=== PATIENT | female | born 1940 | race Caucasian/White ===

== ENCOUNTER 2017-06-09 23:27 | Inpatient (IN) | payer MEDICARE ==
[~2017-06-09] VITALS: Ht 154.9 cm; Wt 61.0 kg
[~2017-06-09 23:27] MED LIST: ONDA4TAB10 SL
--- NOTE | 2017-06-09 23:29 | PHYS DOC ---
Past Medical History Past Medical History: Cancer, Hypertension Additional Past Medical Histor: breast cancer s/p treatment Past Surgical History: Cholecystectomy, Tonsillectomy Additional Past Surgical Histo: R breast mastectomy Alcohol Use: None Drug Use: None Adult General Chief Complaint Chief Complaint: DIZZY/LIGHT HEADED [facility] HPI Patient is a 76 year old female who presents with nausea, vomiting, dizziness. She states it started around 9:00 tonight. She took her blood pressure and it was 185/85 at that time. She states she vomited up her blood pressure meds. She denies any vertigo type symptoms. She denies any chest pain. She denies abdominal pain. She vomited upon arrival to the ER. Her blood pressures currently 209 systolic. Review of Systems Review of Systems Constitutional: Denies fever or chills [] Eyes: Denies change in visual acuity, redness, or eye pain [] HENT: Denies nasal congestion or sore throat [] Respiratory: Denies cough or shortness of breath [] Cardiovascular: No additional information not addressed in HPI [] GI: Denies abdominal pain, bloody stools or diarrhea, positive for nausea, vomiting : Denies dysuria or hematuria [] Musculoskeletal: Denies back pain or joint pain [] Integument: Denies rash or skin lesions [] Neurologic: Denies headache, focal weakness or sensory changes [] Endocrine: Denies polyuria or polydipsia [] All other systems were reviewed and found to be within normal limits, except as documented in this note. Current Medications Current Medications Allergies Allergies Allergies Coded Allergies Type Severity Reaction Last Updated Verified Sulfa (Sulfonamide Antibiotics) Allergy Intermediate 08/17/16 Yes atropine Allergy Intermediate 08/17/16 Yes codeine Allergy Intermediate 08/17/16 Yes diphenoxylate Allergy Intermediate 08/17/16 Yes Physical Exam Physical Exam Constitutional: Well developed, well nourished, no acute distress, non-toxic appearance. [] HENT: Normocephalic, atraumatic, bilateral external ears normal, oropharynx moist, no oral exudates, nose normal. Right TM occluded with wax, left TM nonerythematous Eyes: PERRLA, EOMI, conjunctiva normal, no discharge. [] Neck: Normal range of motion, no tenderness, supple, no stridor. [] Cardiovascular:Heart rate regular rhythm, no murmur [] Lungs & Thorax: Bilateral breath sounds clear to auscultation [] Abdomen: Bowel sounds normal, soft, no tenderness, no masses, no pulsatile masses. [] Skin: Warm, dry, no erythema, no rash. [] Back: No tenderness, no CVA tenderness. [] Extremities: No tenderness, no cyanosis, no clubbing, ROM intact, no edema. [] Neurologic: Alert and oriented X 3, normal motor function, normal sensory function, no focal deficits noted. [] Psychologic: Affect normal, judgement normal, mood normal. [] Current Patient Data Vital Signs Vital Signs Date Time Temp Pulse Resp B/P (MAP) Pulse Ox O2 Delivery O2 Flow Rate FiO2 06/10/17 00:16 58 12 94 06/09/17 23:40 96.9 191/80 (117) Room Air 96.9 Lab Values Laboratory Tests Test 06/09/17 23:40 06/09/17 23:50 Urine Collection Type Unknown Urine Color Yellow Urine Clarity Cloudy Urine pH 7.5 Urine Specific [place] 1.015 Urine Protein 30 mg/dL (NEG-TRACE) Urine Glucose (UA) 250 mg/dL (NEG) Urine Ketones (Stick) Negative mg/dL (NEG) Urine Blood Trace (NEG) Urine Nitrite Negative (NEG) Urine Bilirubin Negative (NEG) Urine Urobilinogen Dipstick 0.2 mg/dL (0.2 mg/dL) Urine Leukocyte Esterase Negative (NEG) Urine RBC 1-2 /HPF (0-2) Urine WBC 0 /HPF (0-4) Urine Squamous Epithelial Cells Few /LPF Urine Amorphous Sediment Present /HPF Urine Bacteria 0 /HPF (0-FEW) Urine Mucus Slight /LPF Urine Opiates Screen Neg (NEG) Urine Methadone Screen Neg (NEG) Urine Barbiturates Neg (NEG) Urine Phencyclidine Screen Neg (NEG) Urine Amphetamine/Methamphetamine Neg (NEG) Urine Benzodiazepines Screen Neg (NEG) Urine Cocaine Screen Neg (NEG) Urine Cannabinoids Screen Neg (NEG) Urine Ethyl Alcohol Neg (NEG) White Blood Count 8.2 x10^3/uL (4.0-11.0) Red Blood Count 4.70 x10^6/uL (3.50-5.40) Hemoglobin 14.8 g/dL (12.0-15.5) Hematocrit 43.3 % (36.0-47.0) Mean Corpuscular Volume 92 fL (79-100) Mean Corpuscular Hemoglobin 32 pg (25-35) Mean Corpuscular Hemoglobin Concent 34 g/dL (31-37) Red Cell Distribution Width 13.0 % (11.5-14.5) Platelet Count 184 x10^3/uL (140-400) Neutrophils (%) (Auto) 79 % (31-73) H Lymphocytes (%) (Auto) 15 % (24-48) L Monocytes (%) (Auto) 5 % (0-9) Eosinophils (%) (Auto) 0 % (0-3) Basophils (%) (Auto) 1 % (0-3) Neutrophils # (Auto) 6.5 x10^3uL (1.8-7.7) Lymphocytes # (Auto) 1.2 x10^3/uL (1.0-4.8) Monocytes # (Auto) 0.4 x10^3/uL (0.0-1.1) Eosinophils # (Auto) 0.0 x10^3/uL (0.0-0.7) Basophils # (Auto) 0.1 x10^3/uL (0.0-0.2) Prothrombin Time 12.9 SEC (11.7-14.0) Prothrombin Time INR 1.0 (0.8-1.1) Sodium Level 140 mmol/L (136-145) Potassium Level 3.7 mmol/L (3.5-5.1) Chloride Level 102 mmol/L (98-107) Carbon Dioxide Level 28 mmol/L (21-32) Anion Gap 10 (6-14) Blood Urea Nitrogen 15 mg/dL (7-20) Creatinine 0.7 mg/dL (0.6-1.0) Estimated GFR (Cockcroft-Gault) 81.4 Glucose Level 176 mg/dL (70-99) H Calcium Level 9.3 mg/dL (8.5-10.1) Magnesium Level 2.0 mg/dL (1.8-2.4) Total Bilirubin 0.4 mg/dL (0.2-1.0) Direct Bilirubin 0.1 mg/dL (0.0-0.2) Aspartate Amino Transferase (AST) 17 U/L (15-37) Alanine Aminotransferase (ALT) 25 U/L (14-59) Alkaline Phosphatase 102 U/L (46-116) Creatine Kinase 72 U/L (26-192) Creatine Kinase MB (Mass) 2.9 ng/mL (0.0-3.6) Creatine Kinase MB Relative Index 4.0 % (0-4) Troponin I Quantitative < 0.017 ng/mL (0.000-0.055) BN-Lbt-H-Type Natriuretic Peptide 161 pg/mL (0-449) Total Protein 7.3 g/dL (6.4-8.2) Albumin 4.6 g/dL (3.4-5.0) Lipase 213 U/L (73-393) Thyroid Stimulating Hormone (TSH) 1.348 uIU/mL (0.358-3.74) Laboratory Tests 06/09/17 23:50 Laboratory Tests 06/09/17 23:50 EKG EKG EKG shows sinus rhythm with rate of [address] elevations or concerning T-wave inversions, and normal axis, incomplete right bundle branch morphology noted, QRS 92, QTC 453 ms, as interpreted by me. Radiology/Procedures Radiology/Procedures One view chest x-ray did not show any focal consolidations, bony abnormality's, pneumothorax, as interpreted by me. Impressions: Accelerated hypertension Dizziness Nausea vomiting History of hypertension History of breast cancer status post mastectomy Course & Med Decision Making Course & Med Decision Making Pertinent Labs and Imaging studies reviewed. (See chart for details) Labs, EKG, chest x-ray nonacute. Patient received IV hydralazine 2 to bring her blood pressure down to the 140s now. She feels dizzy and states she feels like she spinning. She states she's had history of vertigo in the past but this is a little different with the room spun before. She complains about fullness in her right ear. She received a dose of Zofran for nausea and a dose of meclizine for dizziness. She's being admitted to Dr. Jang in stable condition this time. CT of head is pending at this time. She does not have any focal neurological deficits or headache. CT head return with a small area of density is concerning for subarachnoid. I spoke with Dr. Conte who once CT angiogram of the head and neck to look for any aneurysm. CT angiogram of head and neck did not show any acute process. The patient being admitted in stable condition this time. Dragon Disclaimer Dragon Disclaimer This electronic medical record was generated, in whole or in part, using a voice recognition dictation system. Departure Departure Impression: Primary Impression: Accelerated hypertension Additional Impression: Dizziness Disposition: 09 ADMITTED INPATIENT Admitting Physician: Luke Jang Condition: STABLE Referrals: LUKE JANG MD (PCP) Problem Qualifiers DAVID ESPINOSA MD Jun 09, 2017 23:29
[2017-06-10 00:02] LABS: BASO # 0.1 x10^3/uL (0.0-0.2); BASO % 1 % (0-3); EOS % 0 % (0-3); HEMATOCRIT 43.3 % (36.0-47.0); HEMOGLOBIN 14.8 g/dL (12.0-15.5); LYMPH # 1.2 x10^3/uL (1.0-4.8); LYMPH % 15 % (24-48); MEAN CORPUSCULAR HEMOGLOBIN 32 pg (25-35); MEAN CORPUSCULAR HGB CONC 34 g/dL (31-37); MEAN CORPUSCULAR VOLUME 92 fL (79-100); MONO % 5 % (0-9); NEUT % 79 % (31-73); PLATELET COUNT 184 x10^3/uL (140-400); WHITE BLOOD COUNT 8.2 x10^3/uL (4.0-11.0)
[2017-06-10 00:03] LABS: BILIRUBIN,URINE NEGATIVE (NEG); GLUCOSE,URINE 250 mg/dL (NEG); NITRITE,URINE NEGATIVE (NEG); PH,URINE 7.5; PROTEIN,URINE 30 mg/dL (NEG-TRACE); UROBILINOGEN,URINE 0.2 mg/dL (0.2 mg/dL)
[2017-06-10 00:09] LABS: BACTERIA,URINE 0 /HPF (0-FEW); SQUAMOUS EPITHELIAL CELL,UR FEW /LPF; WBC,URINE 0 /HPF (0-4)
[2017-06-10 00:10] LABS: PROTHROMBIN TIME PATIENT 12.9 SEC (11.7-14.0)
[2017-06-10 00:15] LABS: BARBITURATES NEG (NEG); BENZODIAZEPINES NEG (NEG); CANNABINOIDS NEG (NEG); COCAINE NEG (NEG); METHADONE NEG (NEG); OPIATES NEG (NEG); PHENCYCLIDINE NEG (NEG)
[2017-06-10 00:18] LABS: CALCIUM 9.3 mg/dL (8.5-10.1); CREATININE 0.7 mg/dL (0.6-1.0); GFR 81.4; POTASSIUM 3.7 mmol/L (3.5-5.1)
[2017-06-10 00:25] LABS: ALBUMIN 4.6 g/dL (3.4-5.0); DIRECT BILIRUBIN 0.1 mg/dL (0.0-0.2); TOTAL BILIRUBIN 0.4 mg/dL (0.2-1.0); TOTAL PROTEIN 7.3 g/dL (6.4-8.2)
[2017-06-10 00:33] LABS: CKMB MASS 2.9 ng/mL (0.0-3.6)
[2017-06-10] MEDS ORDERED: ONDANSETRON PF 4 MG/2 ML VIAL. ONE (00:39)
[2017-06-10] MEDS ORDERED: hydrALAZINE 20 MG/ML VIAL. ONE (00:39)
[2017-06-10] MEDS ORDERED: ONDANSETRON PF 4 MG/2 ML VIAL. IV ONE (01:00)
[2017-06-10] MEDS ORDERED: hydrALAZINE 20 MG/ML VIAL. IVP ONE ×2 (01:00→01:15)
[2017-06-10] MEDS ORDERED: ONDANSETRON PF 4 MG/2 ML VIAL. IV PRN (01:45)
[2017-06-10] MEDS ORDERED: MECLIZINE HCL 12.5 MG TABLET. PO ONE (02:00)
[2017-06-10] MEDS ORDERED: PROMETHAZINE 12.5 MG in IV DEXTROSE 5% 50 ML IV PRN (02:15)
--- NOTE | 2017-06-10 02:26 | RAD ---
INDICATION: dizziness COMPARISON: None. TECHNIQUE: Axial CT images obtained through the head without intravenous contrast. One or more of the following individualized dose reduction techniques were utilized for this examination: 1. Automated exposure control; 2. Adjustment of the mA and/or kV according to patient size; 3. Use of iterative reconstruction technique. FINDINGS: Tiny focus of high attenuation in left temporal region No midline shift. Basal cisterns patents. Ventricles and sulci are globally prominent. No acute osseous abnormality. Orbits and paranasal sinuses unremarkable. Scattered foci of low attenuation within the white matter. IMPRESSION: 1. Tiny focus of low high attenuation is seen within the left temporal region. Although its possible that this is secondary to calcific atherosclerosis in one of the branches of the left MCA or a calcification along the cortex alternative causes such as a small amount of subarachnoid hemorrhage can have this appearance. Other possible causes including a small thrombus is also within the differential. Follow-up MRI or CT in a few hours may be helpful to ensure no increase in this finding. 2. Scattered regions of low attenuation within the white matter. Non-specific in nature but frequently secondary to chronic small vessel ischemic disease. 3. Prominence of ventricles and sulci which is frequently secondary to age related volume loss. Electronically signed by: Markel Wellington MD (06/10/2017 2:23 AM) [id number]
[2017-06-10] MEDS ORDERED: CONTRAST GIVEN MC PRN (05:30)
[2017-06-10] MEDS ORDERED: IOHEXOL 300 MG/ML 100ML VIAL. IV ONE (06:00)
--- NOTE | 2017-06-10 06:55 | RAD ---
INDICATION: Dizziness with concern for vascular etiology. COMPARISON: CT head from earlier same day TECHNIQUE: Axial CT images obtained through the head and neck arterial vasculature with three-dimensional images processed per protocol. Estimates of carotid stenosis based on criteria that correlate with NASCET. One or more of the following individualized dose reduction techniques were utilized for this examination: 1. Automated exposure control; 2. Adjustment of the mA and/or kV according to patient size; 3. Use of iterative reconstruction technique. FINDINGS: Neck angiography: Vertebral arteries are patent. Common carotid arteries are patent. There is some calcific atherosclerosis seen at carotid bulbs. Internal carotid arteries are patent. Proximal external carotid arteries are patent. Suspected approximately 50 percent stenosis at right carotid bulb. Brain angiography: Basilar artery is patent. Distal internal carotid arteries patent. Proximal MCA, LISA and [employer] patent. No definite proximal aneurysm. Other findings: The region of high attenuation within the left cerebral hemisphere on the noncontrast exam is not as well seen on this exam postcontrast. A branch of the left MCA is seen coursing through this region with contrast seen within it. Degenerative changes spine.. IMPRESSION: No evidence of occlusion of the major arterial vessels of the neck. No evidence of occlusion of the proximal major vessels of the head but CT angiography is insensitive for evaluation of more peripheral small vessel stroke. If there is any clinical concern for stroke then MRI should be obtained to further evaluate. The region of high attenuation within the left temporal region seen on noncontrast imaging is not as well seen on this examination. This could be secondary to postcontrast nature of this exam and a follow-up examination with MRI or noncontrast CT at a later time should still BE obtained to ensure that there is not a small amount of hemorrhage in this area. It is possible that this high attenuation is artifactual in nature but follow-up is warranted. Electronically signed by: Markel Wellington MD (06/10/2017 6:52 AM) [facility]
--- NOTE | 2017-06-10 07:29 | EKG ---
[facility] [address] [place] [address] Test Date: 2017-06-09 Test Time: 23:47:44 Pat Name: NILES FERREIRA Department: Room: 203 1 Gender: F Commercial Announcer: : 1940 Requested By: DAVID ESPINOSA Order Number: [id number] Reading MD: Abiodun Berry Measurements Intervals [place] Rate: 62 P: -38 ND: 150 QRS: 5 QRSD: 92 T: 48 QT: 444 QTc: 453 Interpretive Statements SINUS RHYTHM INCOMPLETE RIGHT BUNDLE BRANCH BLOCK OTHERWISE NORMAL ECG RI6.01 No previous ECG available for comparison Electronically Signed On 06-10-2017 17:42:56 BAR CATCHER by Abiodun Berry
--- NOTE | 2017-06-10 07:45 | RAD ---
Chest x-ray Indication: Weakness Technique: Portable AP upright chest x-ray Comparison: None Findings: Heart is normal in size. Aortic knob calcifications noted. Lungs are clear without focal consolidation. No pneumothorax or pleural effusion. Right axillary lymph node dissection. Visualized bony thorax is within normal limits. Impression: No acute cardiopulmonary process.
--- NOTE | 2017-06-10 08:29 | PDOC ---
GENERAL General: see dictated H&P. Problems: VITAL SIGNS Vital Signs: Vital Signs Date Time Temp Pulse Resp B/P (MAP) Pulse Ox O2 Delivery O2 Flow Rate FiO2 06/10/17 06:56 65 18 95 06/10/17 01:04 209/84 06/09/17 23:40 96.9 Room Air 96.9 ALLERGIES Allergies: Allergies Coded Allergies Type Severity Reaction Last Updated Verified Sulfa (Sulfonamide Antibiotics) Allergy Intermediate 08/17/16 Yes atropine Allergy Intermediate 08/17/16 Yes codeine Allergy Intermediate 08/17/16 Yes diphenoxylate Allergy Intermediate 08/17/16 Yes MEDS Medications: Current Medications Medications (Trade) Dose Ordered Sig/Ilia Start Time Stop Time Status Last Admin Dose Admin Hydralazine HCl (Apresoline Inj) 10 mg 1X ONCE 06/10/17 01:15 06/10/17 01:16 DC 06/10/17 01:04 10 MG Info (Do NOT chart on this entry -- for MONITORING) 1 each PRN DAILY PRN 06/10/17 05:30 06/12/17 05:29 Iohexol (Omnipaque 300 Mg/ml) 75 ml 1X ONCE 06/10/17 06:00 06/10/17 06:01 DC Meclizine HCl (Antivert) 25 mg 1X ONCE 06/10/17 02:00 06/10/17 02:01 DC 06/10/17 01:48 25 MG Ondansetron HCl (Zofran) 4 mg PRN Q8HRS PRN 06/10/17 01:45 06/11/17 01:44 06/10/17 01:53 4 MG Promethazine HCl 12.5 mg/Dextrose 50.5 ml @ 151.5 mls/ hr PRN Q6HRS PRN 06/10/17 02:15 06/10/17 03:02 151.5 MLS/HR LAB Lab: Laboratory Tests Test 06/09/17 23:40 06/09/17 23:50 Urine Collection Type Unknown Urine Color Yellow Urine Clarity Cloudy Urine pH 7.5 Urine Specific [place] 1.015 Urine Protein 30 mg/dL (NEG-TRACE) Urine Glucose (UA) 250 mg/dL (NEG) Urine Ketones (Stick) Negative mg/dL (NEG) Urine Blood Trace (NEG) Urine Nitrite Negative (NEG) Urine Bilirubin Negative (NEG) Urine Urobilinogen Dipstick 0.2 mg/dL (0.2 mg/dL) Urine Leukocyte Esterase Negative (NEG) Urine RBC 1-2 /HPF (0-2) Urine WBC 0 /HPF (0-4) Urine Squamous Epithelial Cells Few /LPF Urine Amorphous Sediment Present /HPF Urine Bacteria 0 /HPF (0-FEW) Urine Mucus Slight /LPF Urine Opiates Screen Neg (NEG) Urine Methadone Screen Neg (NEG) Urine Barbiturates Neg (NEG) Urine Phencyclidine Screen Neg (NEG) Urine Amphetamine/Methamphetamine Neg (NEG) Urine Benzodiazepines Screen Neg (NEG) Urine Cocaine Screen Neg (NEG) Urine Cannabinoids Screen Neg (NEG) Urine Ethyl Alcohol Neg (NEG) White Blood Count 8.2 x10^3/uL (4.0-11.0) Red Blood Count 4.70 x10^6/uL (3.50-5.40) Hemoglobin 14.8 g/dL (12.0-15.5) Hematocrit 43.3 % (36.0-47.0) Mean Corpuscular Volume 92 fL (79-100) Mean Corpuscular Hemoglobin 32 pg (25-35) Mean Corpuscular Hemoglobin Concent 34 g/dL (31-37) Red Cell Distribution Width 13.0 % (11.5-14.5) Platelet Count 184 x10^3/uL (140-400) Neutrophils (%) (Auto) 79 % (31-73) Lymphocytes (%) (Auto) 15 % (24-48) Monocytes (%) (Auto) 5 % (0-9) Eosinophils (%) (Auto) 0 % (0-3) Basophils (%) (Auto) 1 % (0-3) Neutrophils # (Auto) 6.5 x10^3uL (1.8-7.7) Lymphocytes # (Auto) 1.2 x10^3/uL (1.0-4.8) Monocytes # (Auto) 0.4 x10^3/uL (0.0-1.1) Eosinophils # (Auto) 0.0 x10^3/uL (0.0-0.7) Basophils # (Auto) 0.1 x10^3/uL (0.0-0.2) Prothrombin Time 12.9 SEC (11.7-14.0) Prothromb Time International Ratio 1.0 (0.8-1.1) Sodium Level 140 mmol/L (136-145) Potassium Level 3.7 mmol/L (3.5-5.1) Chloride Level 102 mmol/L (98-107) Carbon Dioxide Level 28 mmol/L (21-32) Anion Gap 10 (6-14) Blood Urea Nitrogen 15 mg/dL (7-20) Creatinine 0.7 mg/dL (0.6-1.0) Estimated GFR (Cockcroft-Gault) 81.4 Glucose Level 176 mg/dL (70-99) Calcium Level 9.3 mg/dL (8.5-10.1) Magnesium Level 2.0 mg/dL (1.8-2.4) Total Bilirubin 0.4 mg/dL (0.2-1.0) Direct Bilirubin 0.1 mg/dL (0.0-0.2) Aspartate Amino Transf (AST/SGOT) 17 U/L (15-37) Alanine Aminotransferase (ALT/SGPT) 25 U/L (14-59) Alkaline Phosphatase 102 U/L (46-116) Creatine Kinase 72 U/L (26-192) Creatine Kinase MB (Mass) 2.9 ng/mL (0.0-3.6) Creatine Kinase MB Relative Index 4.0 % (0-4) Troponin I Quantitative < 0.017 ng/mL (0.000-0.055) RC-Sar-J-Type Natriuretic Peptide 161 pg/mL (0-449) Total Protein 7.3 g/dL (6.4-8.2) Albumin 4.6 g/dL (3.4-5.0) Lipase 213 U/L (73-393) Thyroid Stimulating Hormone (TSH) 1.348 uIU/mL (0.358-3.74) APPLLUKE MD Jun 10, 2017 08:29
[2017-06-10] MEDS ORDERED: MECLIZINE HCL 12.5 MG TABLET. PO PRN (08:30)
[2017-06-10] MEDS ORDERED: DILT120C80 PO (08:40)
[2017-06-10] MEDS ORDERED: LISI40TA PO (08:40)
[2017-06-10 10:10] VITALS: BP 177/82
--- NOTE | 2017-06-10 10:10 | HP ---
ADMIT DATE: CHIEF COMPLAINT AND HISTORY OF PRESENT ILLNESS: This 76-year-old white female is known to me from the office. The patient had the onset of a spinning in her head with difficulties getting around the house and checked her blood pressure, and it was a much higher than normal and presented to the Emergency Room, where it was felt that probably because of the vertigo, she was unsafe to return to home until this settled down. In addition, she was felt to have accelerated hypertension. She did have a CT of the head showing initially some question on the left temporal lobe process, which CTA of the head did not show any evidence of blockage. She was admitted with vertigo as well as accelerated hypertension. PAST MEDICAL HISTORY: Remarkable for history of breast cancer and hypertension. PAST SURGICAL HISTORY: Remarkable for right mastectomy, cholecystectomy, tonsillectomy. MEDICATIONS: Brought with the patient, listed on the computer and have been addressed. ALLERGIES: SHE IS ALLERGIC TO SULFA, CODEINE, LOMOTIL AND ATROPINE. SOCIAL HISTORY: She is nonsmoker, nondrinker, does not use drugs. FAMILY HISTORY: Noncontributory. REVIEW OF SYSTEMS: As mentioned above. PHYSICAL EXAMINATION: GENERAL: She is a well-developed, well-nourished white female, in no acute distress at rest. VITAL SIGNS: Stable, with the blood pressure again elevated, and she is afebrile. HEAD, EYES, EARS, NOSE AND THROAT: Remarkable for some mild left nystagmus. NECK: Supple, without any thyromegaly. CHEST: Clear to auscultation and percussion. HEART: Regular rate and rhythm without S3, S4 or murmur. ABDOMEN: Soft, nontender, without hepatosplenomegaly or masses. EXTREMITIES: Without cyanosis, clubbing, edema. NEUROLOGIC: Nonfocal. IMPRESSION: Vertigo, symptomatic, with accelerated hypertension and an elevated blood sugar of 176 on admission. PLAN: The patient has been admitted. Meclizine will be given. Blood pressures will be treated. Hemoglobin A1c will be checked and the patient will be monitored, managed and treated appropriately. LUKE JANG MD DR: SHOLA/mary JOB#: [id number] / [id number]
[2017-06-10 11:00] VITALS: BP 142/65
[2017-06-10 15:00] VITALS: BP 142/65
[2017-06-10] MEDS: amLODIPine BESYLATE 5 MG TABLET PO SCH (19:34)
[2017-06-10 19:40] VITALS: BP 168/72
[2017-06-10] MEDS: LISINOPRIL 40 MG TABLET. PO SCH (21:57)
[2017-06-10 23:11] VITALS: BP 136/63
[2017-06-11 03:15] VITALS: BP 142/65
[2017-06-11 06:28] LABS: BASO # 0.1 x10^3/uL (0.0-0.2); BASO % 1 % (0-3); EOS % 2 % (0-3); HEMATOCRIT 45.9 % (36.0-47.0); HEMOGLOBIN 15.5 g/dL (12.0-15.5); LYMPH # 2.9 x10^3/uL (1.0-4.8); LYMPH % 34 % (24-48); MEAN CORPUSCULAR HEMOGLOBIN 31 pg (25-35); MEAN CORPUSCULAR HGB CONC 34 g/dL (31-37); MEAN CORPUSCULAR VOLUME 93 fL (79-100); MONO % 11 % (0-9); NEUT % 53 % (31-73); PLATELET COUNT 213 x10^3/uL (140-400); RED BLOOD COUNT 4.97 x10^6/uL (3.50-5.40); RED CELL DISTRIBUTION WIDTH 13.4 % (11.5-14.5); WHITE BLOOD COUNT 8.5 x10^3/uL (4.0-11.0)
[2017-06-11 06:47] LABS: CALCIUM 9.1 mg/dL (8.5-10.1); CREATININE 0.8 mg/dL (0.6-1.0); GFR 69.7; POTASSIUM 3.9 mmol/L (3.5-5.1)
[2017-06-11 07:00] VITALS: BP 157/71
--- NOTE | 2017-06-11 08:21 | PDOC ---
GENERAL General: see discharge summary. Problems: VITAL SIGNS Vital Signs: Vital Signs Date Time Temp Pulse Resp B/P (MAP) Pulse Ox O2 Delivery O2 Flow Rate FiO2 06/11/17 03:15 98.2 58 18 142/65 (90) 95 Room Air 98.2 ALLERGIES Allergies: Allergies Coded Allergies Type Severity Reaction Last Updated Verified Sulfa (Sulfonamide Antibiotics) Allergy Intermediate 08/17/16 Yes atropine Allergy Intermediate 08/17/16 Yes codeine Allergy Intermediate 08/17/16 Yes diphenoxylate Allergy Intermediate 08/17/16 Yes MEDS Medications: Current Medications Medications (Trade) Dose Ordered Sig/Ilia Start Time Stop Time Status Last Admin Dose Admin Amlodipine Besylate (Norvasc) 5 mg DAILY 06/10/17 19:15 06/10/17 19:34 5 MG Diltiazem HCl (Cardizem 24hr Cd) 120 mg DAILY 06/11/17 09:00 Hydralazine HCl (Apresoline Inj) 20 mg STK-MED ONCE 06/10/17 00:39 06/10/17 12:32 DC Info (Do NOT chart on this entry -- for MONITORING) 1 each PRN DAILY PRN 06/10/17 05:30 06/12/17 05:29 Iohexol (Omnipaque 300 Mg/ml) 75 ml 1X ONCE 06/10/17 06:00 06/10/17 06:01 DC Lisinopril (Prinivil) 40 mg BID 06/10/17 21:00 06/10/17 21:57 40 MG Meclizine HCl (Antivert) 25 mg PRN Q6HRS PRN 06/10/17 08:30 Ondansetron HCl (Zofran) 4 mg STK-MED ONCE 06/10/17 00:39 06/10/17 12:32 DC Promethazine HCl 12.5 mg/Dextrose 50.5 ml @ 151.5 mls/ hr PRN Q6HRS PRN 06/10/17 02:15 06/10/17 03:02 151.5 MLS/HR LAB Lab: Laboratory Tests Test 06/10/17 13:30 06/11/17 06:05 Troponin I Quantitative < 0.017 ng/mL (0.000-0.055) White Blood Count 8.5 x10^3/uL (4.0-11.0) Red Blood Count 4.97 x10^6/uL (3.50-5.40) Hemoglobin 15.5 g/dL (12.0-15.5) Hematocrit 45.9 % (36.0-47.0) Mean Corpuscular Volume 93 fL (79-100) Mean Corpuscular Hemoglobin 31 pg (25-35) Mean Corpuscular Hemoglobin Concent 34 g/dL (31-37) Red Cell Distribution Width 13.4 % (11.5-14.5) Platelet Count 213 x10^3/uL (140-400) Neutrophils (%) (Auto) 53 % (31-73) Lymphocytes (%) (Auto) 34 % (24-48) Monocytes (%) (Auto) 11 % (0-9) Eosinophils (%) (Auto) 2 % (0-3) Basophils (%) (Auto) 1 % (0-3) Neutrophils # (Auto) 4.4 x10^3uL (1.8-7.7) Lymphocytes # (Auto) 2.9 x10^3/uL (1.0-4.8) Monocytes # (Auto) 0.9 x10^3/uL (0.0-1.1) Eosinophils # (Auto) 0.1 x10^3/uL (0.0-0.7) Basophils # (Auto) 0.1 x10^3/uL (0.0-0.2) Sodium Level 141 mmol/L (136-145) Potassium Level 3.9 mmol/L (3.5-5.1) Chloride Level 106 mmol/L (98-107) Carbon Dioxide Level 28 mmol/L (21-32) Anion Gap 7 (6-14) Blood Urea Nitrogen 17 mg/dL (7-20) Creatinine 0.8 mg/dL (0.6-1.0) Estimated GFR (Cockcroft-Gault) 69.7 Glucose Level 96 mg/dL (70-99) Calcium Level 9.1 mg/dL (8.5-10.1) LUKE JANG MD Jun 11, 2017 08:21
[2017-06-11] MEDS: amLODIPine BESYLATE 5 MG TABLET PO SCH (09:00)
[2017-06-11] MEDS: LISINOPRIL 40 MG TABLET. PO SCH (09:00)
[2017-06-11] MEDS ORDERED: AMLO5TAB2 PO (09:57)
[2017-06-11] MEDS ORDERED: MECL25TA3 PO (10:28)
--- NOTE | 2017-06-11 11:11 | DS ---
DATE OF DISCHARGE: 06/11/2017 PRIMARY DIAGNOSIS: Accelerated hypertension. ADDITIONAL DIAGNOSES: Incapacitating vertigo, history of breast cancer. CHIEF COMPLAINT AND HISTORY OF PRESENT ILLNESS: A 76-year-old white female who is known to me from the office. She had the onset of vertigo on the day of admission with difficulties getting around her apartment and blood pressure was much higher than normal and presented to the Emergency Room, where it was felt because of vertigo, she was unsafe to return until this would settle down. In addition, she was felt to have accelerated hypertension. She did have a CT of the head showing initially some question of a left temporal lobe process, but CTA of the head did not show any evidence of anything as well as blockage there. She was admitted with vertigo as well as accelerated hypertension. SUMMARY OF STAY: The patient was admitted. Meclizine seemed to control the vertigo. She did have some mild left nystagmus on exam. Otherwise, nonfocal neurological exam. Amlodipine was added to her home lisinopril with improvement in her blood pressures by the time of discharge and it was felt she could be dismissed with outpatient followup of the same. DISPOSITION: The patient is discharged to home, regular diet, activity as tolerated, office in 2 weeks. DISCHARGE MEDICATIONS: Will include her regular home lisinopril plus amlodipine 5 mg daily and meclizine 25 q. 6 p.r.n. dizziness. LUKE JNAG MD DR: SHOLA/mary JOB#: [id number] / [id number]
== END 2017-06-11 11:20 | disposition home or self-care (01) | DRG 149 ==
LOC: ER 23:27 → 2 NORTH 06-10 00:30
PROVIDERS: ADMIT Family Medicine; ATTEND Family Medicine
DX: R42 Dizziness and giddiness (principal); H55.00 Unspecified nystagmus; I10 Essential (primary) hypertension; Z85.3 Personal history of malignant neoplasm of breast; Z90.11 Acquired absence of right breast and nipple; Z90.49 Acquired absence of other specified parts of digestive tract; Z88.2 Allergy status to sulfonamides; Z88.8 Allergy status to other drugs, medicaments and biological substances
CPT/HCPCS: 36415; 70450; 70496; 70498; 71010; 80048; 80076; 80307; 81001; 82553; 83036; 83690; 83735; 83880; 84443; 84484; 85025; 85610; 93005; J0360; J2405; J2550; J8597; 99285-25; G0479

== ENCOUNTER 2018-11-03 09:15 | Emergency (ER) | payer MEDICARE ==
[~2018-11-03] VITALS: Ht 154.9 cm; Wt 54.4 kg
[~2018-11-03 09:15] MED LIST changes: +AMLO5TAB10 PO; +DILT120C85 PO; +LISI-130 PO; +MECL25TA3 PO
[2018-11-03] MEDS ORDERED: IV NORMAL SALINE 1000ML BAG 1,000 ML IV SCH (09:51)
[2018-11-03] MEDS ORDERED: ONDANSETRON PF 4 MG/2 ML VIAL. IV ONE (10:00)
--- NOTE | 2018-11-03 10:17 | PHYS DOC ---
Past Medical History Past Medical History: Cancer, Hypertension Additional Past Medical Histor: breast cancer s/p treatment Past Surgical History: Cholecystectomy, Tonsillectomy Additional Past Surgical Histo: R breast mastectomy Alcohol Use: None Drug Use: None Adult General Chief Complaint Chief Complaint: CONSTIPATION HPI HPI Patient is a 78 year old female who brought in by EMS because of constipation. Patient states she usually has have bowel movement every day but for the last 3 days she did not have any bowel movement. Patient complaining of nausea and abdominal discomfort and states she took anymore last night with small amount of stool came out but still feeling something is stuck in her rectum. She denies taking any narcotic pain medication, rectal bleeding, history of constipation, chest pain and shortness of breath. Patient states she was diagnosed with flu recently without complication. Patient is very uncomfortable and agitated. Review of Systems Review of Systems Constitutional: Denies fever or chills [] Eyes: Denies change in visual acuity, redness, or eye pain [] HENT: Denies nasal congestion or sore throat [] Respiratory: Denies cough or shortness of breath [] Cardiovascular: No additional information not addressed in HPI [] GI: Reports abdominal pain, nausea, constipation, denies vomiting, bloody stools or diarrhea [] : Denies dysuria or hematuria [] Musculoskeletal: Denies back pain or joint pain [] Integument: Denies rash or skin lesions [] Neurologic: Denies headache, focal weakness or sensory changes [] Endocrine: Denies polyuria or polydipsia [] All other systems were reviewed and found to be within normal limits, except as documented in this note. Current Medications Current Medications Current Medications Medications (Trade) Dose Ordered Sig/Ilia Start Time Stop Time Status Last Admin Dose Admin Lidocaine/ Prilocaine (Emla) 1 marie 1X ONCE 11/03/18 13:00 11/03/18 13:02 DC 11/03/18 13:00 1 MARIE Ondansetron HCl (Zofran) 4 mg 1X ONCE 11/03/18 10:00 11/03/18 10:01 DC 11/03/18 10:45 4 MG Sodium Chloride 1,000 ml @ 1,000 mls/hr Q1H 11/03/18 09:51 11/03/18 10:50 DC 11/03/18 10:45 1,000 MLS/HR Allergies Allergies Allergies Coded Allergies Type Severity Reaction Last Updated Verified Sulfa (Sulfonamide Antibiotics) Allergy Intermediate 08/17/16 Yes atropine Allergy Intermediate 08/17/16 Yes codeine Allergy Intermediate 08/17/16 Yes diphenoxylate Allergy Intermediate 08/17/16 Yes Physical Exam Physical Exam Constitutional: Well developed, well nourished, moderate distress, non-toxic appearance. [] HENT: Normocephalic, atraumatic, oropharynx moist.[] Eyes: PERRLA, EOMI, conjunctiva normal, no discharge. [] Neck: Normal range of motion, no tenderness, supple, no stridor. [] Cardiovascular:Heart rate regular rhythm, no murmur [] Lungs & Thorax: Bilateral breath sounds clear to auscultation [] Abdomen: Bowel sounds hyperactive, soft, no tenderness, no masses, no pulsatile masses. 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 Skin: Warm, dry, no erythema, no rash. [] Back: No tenderness, no CVA tenderness. [] Extremities: No tenderness, no cyanosis, no clubbing, ROM intact, no edema. [] Neurologic: Alert and oriented X 3, normal motor function, normal sensory function, no focal deficits noted. [] Psychologic: Affect anxious. Current Patient Data Vital Signs Vital Signs Date Time Temp Pulse Resp B/P (MAP) Pulse Ox O2 Delivery O2 Flow Rate FiO2 11/03/18 10:30 66 159/70 (99) 100 11/03/18 09:27 98.6 16 Room Air 98.6 Lab Values Laboratory Tests Test 11/03/18 10:10 White Blood Count 11.0 x10^3/uL (4.0-11.0) Red Blood Count 4.97 x10^6/uL (3.50-5.40) Hemoglobin 15.4 g/dL (12.0-15.5) Hematocrit 45.5 % (36.0-47.0) Mean Corpuscular Volume 92 fL (79-100) Mean Corpuscular Hemoglobin 31 pg (25-35) Mean Corpuscular Hemoglobin Concent 34 g/dL (31-37) Red Cell Distribution Width 13.1 % (11.5-14.5) Platelet Count 235 x10^3/uL (140-400) Neutrophils (%) (Auto) 79 % (31-73) H Lymphocytes (%) (Auto) 12 % (24-48) L Monocytes (%) (Auto) 8 % (0-9) Eosinophils (%) (Auto) 1 % (0-3) Basophils (%) (Auto) 1 % (0-3) Neutrophils # (Auto) 8.7 x10^3uL (1.8-7.7) H Lymphocytes # (Auto) 1.3 x10^3/uL (1.0-4.8) Monocytes # (Auto) 0.9 x10^3/uL (0.0-1.1) Eosinophils # (Auto) 0.1 x10^3/uL (0.0-0.7) Basophils # (Auto) 0.1 x10^3/uL (0.0-0.2) Sodium Level 142 mmol/L (136-145) Potassium Level 3.7 mmol/L (3.5-5.1) Chloride Level 104 mmol/L (98-107) Carbon Dioxide Level 26 mmol/L (21-32) Anion Gap 12 (6-14) Blood Urea Nitrogen 23 mg/dL (7-20) H Creatinine 0.9 mg/dL (0.6-1.0) Estimated GFR (Cockcroft-Gault) 60.6 BUN/Creatinine Ratio 26 (6-20) H Glucose Level 136 mg/dL (70-99) H Calcium Level 9.4 mg/dL (8.5-10.1) Total Bilirubin 0.8 mg/dL (0.2-1.0) Aspartate Amino Transferase (AST) 25 U/L (15-37) Alanine Aminotransferase (ALT) 22 U/L (14-59) Alkaline Phosphatase 68 U/L (46-116) Total Protein 7.3 g/dL (6.4-8.2) Albumin 4.1 g/dL (3.4-5.0) Albumin/Globulin Ratio 1.3 (1.0-1.7) Lipase 313 U/L (73-393) Laboratory Tests 11/03/18 10:10 Laboratory Tests 11/03/18 10:10 EKG EKG [] Radiology/Procedures Radiology/Procedures [][facility] [address] [place] [address] IMAGING REPORT Signed PATIENT: NILES FERREIRA ACCOUNT: [id number] : 1940 LOCATION: ER AGE: 78 SEX: F EXAM STATUS: REG ER ORD. PHYSICIAN: LEYDA JENNINGS MD REASON: constipation PROCEDURE: CT ABDOMEN PELVIS WO CONTRAST CT study of the abdomen and pelvis without contrast Clinical indications: Constipation. History of cholecystectomy and right breast cancer. TECHNIQUE: Noncontrast helical CT scanning of the abdomen and pelvis was performed. Without contrast, the sensitivity to detect organ pathology and GI tract pathology is decreased. PQRS compliance Statement One or more of the following individualized dose reduction techniques were utilized for this study: 1. Automated exposure control 2. Adjustment of the mA and/or kV according to patient size 3. Use of iterative reconstruction technique FINDINGS: The liver and spleen and pancreas are homogeneous in appearance on this noncontrast study. No adrenal mass is evident. Gallbladder is surgically absent. No extrahepatic biliary ductal dilatation is seen. No hydronephrosis or hydroureter or urinary tract stone is evident. Urinary bladder wall is smooth. No uterine mass is evident. No dominant ovarian cyst or mass is evident. There is circumferential wall thickening of the rectum. There is moderate fecal retention within the rectum. Sigmoid diverticulosis is seen without diverticulitis. No significant fecal retention is seen throughout the rest of the colon. There is wall thickening of the entire colon. There is pericolonic inflammatory change. Findings are consistent with colitis. The terminal ileum is unremarkable. There are no CT findings of appendicitis. No obstructive bowel pattern is evident. No free air or free fluid or mesenteric edema is seen. No lung base consolidation is evident. No lytic process is seen. Grade 1 anterolisthesis of L3-4 and L4-5 is seen. IMPRESSION: There is moderate circumferential wall thickening of the rectum measuring up to 27 mm in greatest thickness. Some of the Hounsfield unit measurements are in the low 20s and therefore, this may represent edema or proctitis but malignancy has not been excluded at this point in time. Moderate fecal retention within the rectum. Otherwise no significant fecal retention is seen throughout the rest of the colon. No obstructive bowel pattern is evident. There is diffuse wall thickening of the colon and mild pericolonic inflammatory change around the entire colon which may be secondary to colitis. Small umbilical hernia is seen containing only fat. There is inflammation of this area which is contiguous with the inflammation around the transverse colon. Electronically signed by: Kait Munguia MD (11/03/2018 10:49 AM) [facility] DICTATED and SIGNED BY: KAIT MUNGUIA MD DATE: 11/03/18 1049 Course & Med Decision Making Course & Med Decision Making Pertinent Labs and Imaging studies reviewed. (See chart for details) Evaluation of patient in ER showed 78-year-old female patient with complaining of constipation. Patient has frequent impaction and treated with enema in ER with having a bowel movement. discharge: I've spoken with the patient and/or caregivers. I've explained the patient's condition, diagnosis and treatment plan based on information available to me at this time. I've answered the patient's and/or caregivers questions and addressed any concerns. The patient and/or caregivers have a good understanding the patient's diagnosis, condition and treatment plan as can be expected at this point. Vital signs have been stabilized. The patient's condition is stable for discharge from the emergency department. The patient will pursue further outpatient evaluation with her primary care terrance fox or other designated consulting physician as outlined in the discharge instructions. Patient and/or caregivers are agreeable to this plan of care and follow-up instructions have been explained in detail. The patient and/or caregivers have received these instructions in written format and expressed understanding of these discharge instructions. The patient and her caregivers are aware that if any significant change in condition or worsening of symptoms should prompt him to immediately return to this of the closest emergency department. If an emergent department is not readily available I would encourage him to call 911. Mike Disclaimer Dragon Disclaimer This electronic medical record was generated, in whole or in part, using a voice recognition dictation system. Departure Departure Impression: Primary Impression: Constipation Additional Impressions: Dehydration External hemorrhoids Anxiety Disposition: HOME, SELF-CARE (at 1336) Condition: IMPROVED Referrals: LUKE JANG MD (PCP) Patient Instructions: Constipation, Adult, Dehydration, Adult Additional Instructions: Drink plenty of liquids Follow-up with your primary care physician in 3-5 days Return to ER if not getting better Take [id number] MiraLAX for constipation Scripts Hydrocortisone (ANUSOL-HC) 30 Gm Cream..g. 1 MARIE TP BID, #30 GM 0 Refills Prov: LEYDA JENNINGS MD 11/03/18 Magnesium Citrate (MAGNESIUM CITRATE) 296 Ml Solution 296 ML PO ONCE for constipation, #296 ML Prov: LEYDA JENNINGS MD 11/03/18 Problem Qualifiers Primary Impression: Constipation Constipation type: unspecified constipation type Qualified Codes: K59.00 - Constipation, unspecified LEYDA JENNINGS MD Nov 03, 2018 10:17
[2018-11-03 10:21] LABS: BASO # 0.1 x10^3/uL (0.0-0.2); BASO % 1 % (0-3); EOS # 0.1 x10^3/uL (0.0-0.7); EOS % 1 % (0-3); HEMATOCRIT 45.5 % (36.0-47.0); HEMOGLOBIN 15.4 g/dL (12.0-15.5); LYMPH # 1.3 x10^3/uL (1.0-4.8); LYMPH % 12 % (24-48); MEAN CORPUSCULAR HEMOGLOBIN 31 pg (25-35); MEAN CORPUSCULAR HGB CONC 34 g/dL (31-37); MEAN CORPUSCULAR VOLUME 92 fL (79-100); MONO # 0.9 x10^3/uL (0.0-1.1); MONO % 8 % (0-9); NEUT # 8.7 x10^3uL (1.8-7.7); NEUT % 79 % (31-73); PLATELET COUNT 235 x10^3/uL (140-400); RED BLOOD COUNT 4.97 x10^6/uL (3.50-5.40); RED CELL DISTRIBUTION WIDTH 13.1 % (11.5-14.5)
[2018-11-03 10:28] LABS: CALCIUM 9.4 mg/dL (8.5-10.1); CREATININE 0.9 mg/dL (0.6-1.0); GFR 60.6; POTASSIUM 3.7 mmol/L (3.5-5.1)
[2018-11-03 10:30] VITALS: BP 159/70
[2018-11-03 10:34] LABS: ALBUMIN 4.1 g/dL (3.4-5.0); ALBUMIN/GLOBULIN RATIO 1.3 (1.0-1.7); TOTAL BILIRUBIN 0.8 mg/dL (0.2-1.0); TOTAL PROTEIN 7.3 g/dL (6.4-8.2)
--- NOTE | 2018-11-03 10:52 | RAD ---
CT study of the abdomen and pelvis without contrast Clinical indications: Constipation. History of cholecystectomy and right breast cancer. TECHNIQUE: Noncontrast helical CT scanning of the abdomen and pelvis was performed. Without contrast, the sensitivity to detect organ pathology and GI tract pathology is decreased. PQRS compliance Statement One or more of the following individualized dose reduction techniques were utilized for this study: 1. Automated exposure control 2. Adjustment of the mA and/or kV according to patient size 3. Use of iterative reconstruction technique FINDINGS: The liver and spleen and pancreas are homogeneous in appearance on this noncontrast study. No adrenal mass is evident. Gallbladder is surgically absent. No extrahepatic biliary ductal dilatation is seen. No hydronephrosis or hydroureter or urinary tract stone is evident. Urinary bladder wall is smooth. No uterine mass is evident. No dominant ovarian cyst or mass is evident. There is circumferential wall thickening of the rectum. There is moderate fecal retention within the rectum. Sigmoid diverticulosis is seen without diverticulitis. No significant fecal retention is seen throughout the rest of the colon. There is wall thickening of the entire colon. There is pericolonic inflammatory change. Findings are consistent with colitis. The terminal ileum is unremarkable. There are no CT findings of appendicitis. No obstructive bowel pattern is evident. No free air or free fluid or mesenteric edema is seen. No lung base consolidation is evident. No lytic process is seen. Grade 1 anterolisthesis of L3-4 and L4-5 is seen. IMPRESSION: There is moderate circumferential wall thickening of the rectum measuring up to 27 mm in greatest thickness. Some of the Hounsfield unit measurements are in the low 20s and therefore, this may represent edema or proctitis but malignancy has not been excluded at this point in time. Moderate fecal retention within the rectum. Otherwise no significant fecal retention is seen throughout the rest of the colon. No obstructive bowel pattern is evident. There is diffuse wall thickening of the colon and mild pericolonic inflammatory change around the entire colon which may be secondary to colitis. Small umbilical hernia is seen containing only fat. There is inflammation of this area which is contiguous with the inflammation around the transverse colon. Electronically signed by: Norberto Munguia MD (11/03/2018 10:49 AM) [facility]
[2018-11-03] MEDS ORDERED: LIDOCAINE/PRILOCAINE TOPICAL CREAM 5GM TUBE. TP ONE (13:00)
[2018-11-03] MEDS ORDERED: HYDR30CR61 TP (13:40)
[2018-11-03] MEDS ORDERED: MAGN296S9 PO (13:40)
== END 2018-11-03 14:17 | disposition home or self-care (01) ==
LOC: ER 09:15
DX: K64.4 Residual hemorrhoidal skin tags (principal); E86.0 Dehydration; K59.00 Constipation, unspecified; F41.9 Anxiety disorder, unspecified; I10 Essential (primary) hypertension; Z90.49 Acquired absence of other specified parts of digestive tract; Z88.2 Allergy status to sulfonamides; Z88.5 Allergy status to narcotic agent; Z88.8 Allergy status to other drugs, medicaments and biological substances
CPT/HCPCS: 36415; 74176; 80053; 83690; 85025; 96361; 96374; 99285; J2405; J7030

== ENCOUNTER 2021-07-18 22:02 | Inpatient (IN) | payer MEDICARE ==
[~2021-07-18] VITALS: Ht 160 cm; Wt 55.7 kg
[~2021-07-18 22:02] MED LIST changes: +AMLO-186 PO; -AMLO5TAB10 PO; -DILT120C85 PO; +DILT120C99 PO; +HYDR30CR61 TP; +MAGN296S68 PO; +MECL-75 PO; -MECL25TA3 PO
--- NOTE | 2021-07-18 22:07 | PHYS DOC ---
Past Medical History Past Medical History: Cancer, Hypertension Additional Past Medical Histor: breast cancer s/p treatment Past Surgical History: Cholecystectomy, Tonsillectomy Additional Past Surgical Histo: R breast mastectomy Smoking Status: Never Smoker Alcohol Use: None Drug Use: None General Adult EDM: Chief Complaint: CHEST PAIN HPI: HPI: Patient is a 80 year old female who presents with midsternal chest pain, which began about an hour prior to arrival. The pain was pressure-like, did not radiate, she reports mild dizziness and mild dyspnea with this. The pain has since resolved, right before arrival. She reports that symptoms began shortly after she laid down after eating a cheeseburger. She does report she has had some malaise, fatigue, subjective chills, no documented fever. She has a mild, dry cough. No hemoptysis reported. No diaphoresis, no abdominal pain, no nausea or vomiting. No lower extremity pain or swelling. No exertional chest pain or exertional dyspnea. No syncope or near syncope. She is not vaccinated against COVID-19. 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 She denies recent travel, surgery, or hospitalization within the last 90 days. Review of Systems: Review of Systems: Constitutional: Denies documented fever, though she has had chills, malaise and fatigue Eyes: Denies change in visual acuity. [] HENT: Denies nasal congestion or sore throat. [] Respiratory: Dry cough, denies hemoptysis. Mild dyspnea. Cardiovascular: Chest pain reported. No peripheral edema. GI: Denies abdominal pain, nausea, vomiting, or diarrhea : Denies urinary symptoms Musculoskeletal: Denies back pain or joint pain. Reports diffuse myalgias. Integument: Denies rash. [] Neurologic: Denies headache, focal weakness or sensory changes. [] Psychiatric: Denies depression or anxiety. [] Heart Score: C/O Chest Pain: Yes HEART Score for Chest Pain: HEART Score for Chest Pain Response (Comments) Value History Moderately Suspicious 1 ECG Nonspecific Repolarizatio 1 Age > 65 2 Risk Factors 1 or 2 Risk Factors 1 Troponin < Normal Limit 0 Total 5 Risk Factors: Risk Factors: DM, Current or recent (<one month) smoker, HTN, HLP, family history of CAD, obesity. Risk Scores: Score 0 - 3: 2.5% MACE over next 6 weeks - Discharge Home Score 4 - 6: 20.3% MACE over next 6 weeks - Admit for Clinical Observation Score 7 - 10: 72.7% MACE over next 6 weeks - Early Invasive Strategies Allergies: Allergies: Allergies Coded Allergies Type Severity Reaction Last Updated Verified Sulfa (Sulfonamide Antibiotics) Allergy Intermediate 08/17/16 Yes atropine Allergy Intermediate 08/17/16 Yes codeine Allergy Intermediate 08/17/16 Yes diphenoxylate Allergy Intermediate 08/17/16 Yes Physical Exam: PE: Constitutional: Well developed, well nourished, no acute distress, non-toxic appearance. [] HENT: Normocephalic, atraumatic, mucous membranes are moist Eyes: Clear are clear and anicteric Neck: Normal range of motion, no tenderness, supple, no stridor. Achy yet is midline, no JVD, no meningismus Cardiovascular:Heart rate regular rhythm, was 2 radial and +2 posterior tibial pulses bilaterally Lungs & Thorax: Equal chest rise, no distress, no tachypnea, mildly diminished breath sounds in bilateral bases, no rales, rhonchi, no wheezing. No stridor. Speaks in full and clear sentences. Abdomen: Abdomen is soft, nondistended, nontender to palpation Skin: Warm, dry, no erythema, no rash. [] Back: No tenderness, no CVA tenderness. [] Extremities: No tenderness, no cyanosis, no clubbing, ROM intact, no edema. No calf tenderness. Neurologic: Alert and oriented X 3, normal motor function, normal sensory function, no focal deficits noted. [] Psychologic: Affect normal, judgement normal, mood normal. [] EKG: EKG: EKG is interpreted at 2213 Rhythm is sinus Rate is 88 bpm [place] is left Low voltage No STEMI Radiology/Procedures: Radiology/Procedures: IMAGING REPORT Signed PATIENT: NILES FERREIRA ACCOUNT: [id number] : 1940 LOCATION: ER AGE: 80 SEX: F EXAM STATUS: REG ER ORD. PHYSICIAN: TANNER TALAMANTES DO REASON: chest pain PROCEDURE: PORTABLE CHEST 1V EXAM: AP View of the chest DATE: 07/18/2021 10:36 PM INDICATION: Reason: chest pain / Spl. Instructions: / History: COMPARISON: 06/09/2017 FINDINGS: The heart is not enlarged. Aortic calcifications are seen. Mediastinal and hilar contours are normal. Patchy airspace opacities left lung base and to a lesser extent right lung base. No pleural effusion or pneumothorax. IMPRESSION: 1. Bibasilar patchy opacities may represent atelectasis or developing consolidation. Electronically signed by: Rodríguez Lester MD (07/18/2021 11:01 PM) [facility] DICTATED and SIGNED BY: RODRÍGUEZ LESTER MD DATE: 07/18/21 [id number] 0 Course & Med Decision Making: Course & Med Decision Making Pertinent Labs and Imaging studies reviewed. (See chart for details) The patient is given aspirin. She had no return of any chest pain symptoms. Her Covid swab is positive here today. EKG does not show any obvious acute ischemia. First troponin is negative. I have discussed the findings, differential diagnosis and plan of care with the patient. I recommended hospitalization for further evaluation treatment of her chest pain symptoms, as well as cardiology consultation. She is not requiring supplemental oxygen. No steroids will be given at this time. She is resting comfortably, without complaint of any subjective active dyspnea or chest pain at this time. She is accepted for admission by her primary care doctor, Dr. Gonzales. Mike Disclaimer: Mike Disclaimer: This electronic medical record was generated, in whole or in part, using a voice recognition dictation system. Departure Departure Impression: Primary Impression: Chest pain Additional Impression: COVID-19 Disposition: ADMITTED INPATIENT Admitting Physician: Luke Gonzales Condition: STABLE Referrals: LUKE GONZALES MD (PCP) TANNER TALAMANTES DO Jul 18, 2021 22:07
[2021-07-18 22:32] LABS: BASO % 1 % (0-3); EOS % 0 % (0-3); HEMATOCRIT 37.8 % (36.0-47.0); HEMOGLOBIN 13.1 g/dL (12.0-15.5); LYMPH # 0.5 x10^3/uL (1.0-4.8); LYMPH % 10 % (24-48); MEAN CORPUSCULAR HEMOGLOBIN 31 pg (25-35); MEAN CORPUSCULAR HGB CONC 35 g/dL (31-37); MEAN CORPUSCULAR VOLUME 90 fL (79-100); MONO % 20 % (0-9); NEUT # 3.3 x10^3/uL (1.8-7.7); NEUT % 69 % (31-73); PLATELET COUNT 172 x10^3/uL (140-400); RED BLOOD COUNT 4.22 x10^6/uL (3.50-5.40); RED CELL DISTRIBUTION WIDTH 13.1 % (11.5-14.5); WHITE BLOOD COUNT 4.7 x10^3/uL (4.0-11.0)
[2021-07-18 22:52] LABS: CALCIUM 8.9 mg/dL (8.5-10.1); CREATININE 0.8 mg/dL (0.6-1.0); POTASSIUM 3.7 mmol/L (3.5-5.1)
[2021-07-18 22:58] LABS: ALBUMIN 3.8 g/dL (3.4-5.0); ALBUMIN/GLOBULIN RATIO 1.3 (1.0-1.7); MAGNESIUM 2.1 mg/dL (1.8-2.4); TOTAL BILIRUBIN 0.5 mg/dL (0.2-1.0); TOTAL PROTEIN 6.8 g/dL (6.4-8.2)
--- NOTE | 2021-07-18 22:58 | EKG ---
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
[2021-07-18] MEDS ORDERED: ASPIRIN CHEWABLE 81 MG TABLET. PO ONE (23:00)
[2021-07-18 23:02] LABS: % BANDS 2 % (0-9); % LYMPHS 15 % (24-48); % MONOS 14 % (0-10); % SEGS 69 % (35-66); PLT ESTIMATE ADEQUATE (ADEQUATE)
--- NOTE | 2021-07-18 23:03 | RAD ---
EXAM: AP View of the chest DATE: 07/18/2021 10:36 PM INDICATION: Reason: chest pain / Spl. Instructions: / History: COMPARISON: 06/09/2017 FINDINGS: The heart is not enlarged. Aortic calcifications are seen. Mediastinal and hilar contours are normal. Patchy airspace opacities left lung base and to a lesser extent right lung base. No pleural effusion or pneumothorax. IMPRESSION: 1. Bibasilar patchy opacities may represent atelectasis or developing consolidation. Electronically signed by: Rodríguez Barajas MD (07/18/2021 11:01 PM) CONNIE
--- NOTE | 2021-07-18 23:07 | EKG ---
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
[2021-07-19] MEDS ORDERED: ACETAMINOPHEN 325 MG TABLET. PO PRN
[2021-07-19] MEDS ORDERED: ONDANSETRON PF 4 MG/2 ML VIAL. IVP PRN
[2021-07-19 00:25] VITALS: BP 136/80
[2021-07-19 03:05] VITALS: BP 123/58
[2021-07-19 07:00] VITALS: BP 142/70
[2021-07-19 09:31] LABS: CHOLESTEROL/HDL RATIO 2.1
[2021-07-19 11:00] VITALS: BP 133/65
--- NOTE | 2021-07-19 11:46 | NUR ---
SS following for discharge planning. SS reviewed pt chart and discussed with pt RN. Pt is from home and is currently on room air. COVID19 positive. Cardiology consulted. SS will continue to follow for discharge planning.
--- NOTE | 2021-07-19 12:08 | PDOC2 ---
MITUL BRAY NEON TUBE PUMPER 07/19/21 1208: CARDIAC CONSULT DATE OF CONSULT Date of Consult DATE: 07/19/21 TIME: 11:53 REASON FOR CONSULT Reason for Consult: Chest pain, covid REFERRING PHYSICIAN Referring Physician: Bianca SOURCE Source: Chart review, Patient HISTORY OF PRESENT ILLNESS HISTORY OF PRESENT ILLNESS This is an 80 yo female admitted for complains of chest pain that is nonradiating. This started after laying after eating. she has been having symptoms of fatigue, chills. Also has some SOA. Denies any nausea vomiting or diarrhea. She is not vaccinated for covid-19. Presently no further recurrence of CP nor SOA. Denies any palpitations. PAST MEDICAL HISTORY Cardiovascular: HTN Heme/Onc: Cancer (breast) PAST SURGICAL HISTORY Past Surgical History: Cholecystectomy, Mastectomy, Tonsillectomy FAMILY HISTORY Family History noncontributory SOCIAL HISTORY Smoke: No ALCOHOL: none Drugs: None CURRENT MEDICATIONS CURRENT MEDICATIONS Current Medications Medications (Trade) Dose Ordered Sig/Ilia Route PRN Reason Start Time Stop Time Status Last Admin Dose Admin Aspirin (Aspirin Chewable) 324 mg 1X ONCE PO 07/18/21 23:00 07/18/21 23:01 DC 07/18/21 23:14 Sodium Chloride 1,000 ml @ 75 mls/hr [id number] IV 07/19/21 00:00 07/19/21 00:00 ALLERGIES ALLERGIES: Coded Allergies: Sulfa (Sulfonamide Antibiotics) (Verified Allergy, Intermediate, 2) atropine (Verified Allergy, Intermediate, 2) codeine (Verified Allergy, Intermediate, 08/17/16) diphenoxylate (Verified Allergy, Intermediate, 08/17/16) ROS Review of System 14 point ROS evaluated with pertinent positives noted per HPI PHYSICAL EXAM General: Alert, Oriented X3, Cooperative, No acute distress HEENT: Atraumatic, Mucous membr. moist/pink, Other (TYONEK) Lungs: Other (diminished bases) Heart: Regular rate (SR), Normal S1, Normal S2, Other (2/6 systolic murmur to LLS border) Abdomen: Soft, No tenderness Extremities: No cyanosis, No edema Skin: No breakdown, No significant lesion Neuro: Normal speech, Sensation intact Psych/Mental Status: Mental status NL, Mood NL MUSCULOSKELETAL: Osteoarthritic changes both hands VITALS/I&O VITALS/I&O: Vital Signs Date Time Temp Pulse Resp B/P (MAP) Pulse Ox O2 Delivery O2 Flow Rate FiO2 07/19/21 08:00 Room Air 07/19/21 07:00 100.8 84 18 142/70 (94) 94 100.8 I & O 07/18/21 07/18/21 07/19/21 15:00 23:00 07:00 Intake Total 0 ml Balance 0 ml LABS Lab: Laboratory Tests Test 07/18/21 22:19 07/18/21 22:27 07/19/21 08:30 White Blood Count 4.7 x10^3/uL (4.0-11.0) Red Blood Count 4.22 x10^6/uL (3.50-5.40) Hemoglobin 13.1 g/dL (12.0-15.5) Hematocrit 37.8 % (36.0-47.0) Mean Corpuscular Volume 90 fL (79-100) Mean Corpuscular Hemoglobin 31 pg (25-35) Mean Corpuscular Hemoglobin Concent 35 g/dL (31-37) Red Cell Distribution Width 13.1 % (11.5-14.5) Platelet Count 172 x10^3/uL (140-400) Neutrophils (%) (Auto) 69 % (31-73) Lymphocytes (%) (Auto) 10 % (24-48) L Monocytes (%) (Auto) 20 % (0-9) H Eosinophils (%) (Auto) 0 % (0-3) Basophils (%) (Auto) 1 % (0-3) Neutrophils # (Auto) 3.3 x10^3/uL (1.8-7.7) Lymphocytes # (Auto) 0.5 x10^3/uL (1.0-4.8) L Monocytes # (Auto) 1.0 x10^3/uL (0.0-1.1) Eosinophils # (Auto) 0.0 x10^3/uL (0.0-0.7) Basophils # (Auto) 0.0 x10^3/uL (0.0-0.2) Segmented Neutrophils % 69 % (35-66) H Band Neutrophils % 2 % (0-9) Lymphocytes % 15 % (24-48) L Monocytes % 14 % (0-10) H Platelet Estimate Adequate (ADEQUATE) D-Dimer (Jannie) 0.44 ug/mlFEU (0.00-0.50) Sodium Level 139 mmol/L (136-145) Potassium Level 3.7 mmol/L (3.5-5.1) Chloride Level 104 mmol/L (98-107) Carbon Dioxide Level 27 mmol/L (21-32) Anion Gap 8 (6-14) Blood Urea Nitrogen 16 mg/dL (7-20) Creatinine 0.8 mg/dL (0.6-1.0) Estimated GFR (Cockcroft-Gault) 69.0 BUN/Creatinine Ratio 20 (6-20) Glucose Level 99 mg/dL (70-99) Calcium Level 8.9 mg/dL (8.5-10.1) Magnesium Level 2.1 mg/dL (1.8-2.4) Total Bilirubin 0.5 mg/dL (0.2-1.0) Aspartate Amino Transferase (AST) 19 U/L (15-37) Alanine Aminotransferase (ALT) 20 U/L (14-59) Alkaline Phosphatase 72 U/L (46-116) Troponin I High Sensitivity 17 ng/L (4-50) 13 ng/L (4-50) BW-Lid-L-Type Natriuretic Peptide 200 pg/mL (0-449) Total Protein 6.8 g/dL (6.4-8.2) Albumin 3.8 g/dL (3.4-5.0) Albumin/Globulin Ratio 1.3 (1.0-1.7) Lipase 182 U/L (73-393) SARS-CoV-2 Antigen (Rapid) Positive (NEGATIVE) *A Triglycerides Level 39 mg/dL (0-150) Cholesterol Level 165 mg/dL (0-200) LDL Cholesterol, Calculated 78 mg/dL (0-100) VLDL Cholesterol, Calculated 8 mg/dL (0-40) Non-HDL Cholesterol Calculated 86 mg/dL (0-129) HDL Cholesterol 79 mg/dL (40-60) H Cholesterol/HDL Ratio 2.1 Laboratory Tests 07/18/21 22:19 Laboratory Tests 07/18/21 22:19 STRESS TEST STRESS TEST MPI at [facility] TECHNIQUE: Written informed consent was obtained for the study. Initial CT scan was acquired for attenuation correction of the rest images. Intravenous administration of 6.2mCi of N13 Ammonia was performed followed by saline flush. Resting PET images were acquired immediately for 10 minutes. 20minutes following the rest images, a total of 0.4 mg Regadenoson was injected over 10 seconds at a dosage of 0.08 mg/mL immediately followed by a 10 mL normal saline flush. Within 60 seconds, 16.2 mCi of N13 Ammonia was injected intravenously followed with saline flush. Peak stress images were acquired with ECG - gating starting at the beginning of the infusion of N-13 Ammonia for [address] scan was acquired for attenuation correction of the stress images after PET image acquisition. CLINICAL RESPONSE: Baseline: Heart rate: 82 beats per minute. Blood pressure: 148/72 mmHg After Regadenoson injection: Heart rate: 86 beats per minute. At the end of Regadenoson injection: Blood pressure: 130/66 mmHg (Preliminary) ELECTROCARDIOGRAPHIC FINDINGS: Baseline electrocardiogram shows normal sinus rhythm. The patient did not complain of chest pain. With pharmacological stress the patient had no diagnostic ST segment depression. The patient did however complain of nausea and 50 mg of Aminophyllin was given intravenously. Conclusion: This is a nonischemic pharmacological stress electrocardiogram. Final report to be issued by Cardiology service. PET/CT FINDINGS: Rest/Stress left ventricular myocardial perfusion images demonstrate no stress induced myocardial ischemia noted. Gated images show no wall motion abnormalities. Left Ventricular Ejection fraction: Rest : 71%. Stress: 71% TID: 1.13 SSS: 0 SRS:0 Quantitative analysis - Rest and Stress myocardial blood flow within normal limits. Myocardial flow reserves are in excess of 2. MBF (stress) MBF (rest) MFR LAD 3.52 0.82 4.33 LCx 3.52 0.81 4.35 RCA 3.30 0.83 3.96 Global 3.49 0.82 4.25 *MBF [mL/g/min] Preserved global stress MBF and MFR of >=2 confers low-risk (with NPV of >=95%). Diminished global MFR < 1.5 confers high-risk. Abnormal MBF or MFR may be secondary to epicardial or microvascular disease. Additional CT Findings: The heart is within upper limits of normal in size. No pericardial effusion. Mitral annular and aortic valvular calcifications are identified. At least mild coronary artery calcifications are noted. The thoracic aorta is normal in caliber with mild atherosclerotic calcifications. Moderate atherosclerotic calcifications are identified involving the visualized proximal abdominal aorta.Calcified mediastinal and right hilar granulomas are identified. Multiple surgical clips are identified about the right axillary region. Evaluation of the lung parenchyma is somewhat limited due to respiratory motion artifacts. Mild dependent atelectasis are seen involving predominantly visualized bilateral lower lobes. No discrete pulmonary mass or focal consolidation the visualized lung mon. No significant pleural effusion. Thoracic spondylosis. IMPRESSION Unremarkable rest/ stress N13 ammonia myocardial perfusion PET/CT scan with normal global function and perfusion without evidence of stress induced myocardial ischemia. 09/19/2020 ASSESSMENT/PLAN ASSESSMENT/PLAN 1. Atypical CP: possibly GI, doubt ACS. Recent MPI as noted above with prior EF of 71% 2. Covid-19: unvaccinated 3. Fever 4. HTN: controlled Recommendations 1. Continue covid-19 treatment per PCP 2. Resume home BP regimen 3. No further cardiac workup. Consider future TTE post covid-19 recovery RUBIO SIMMONS MD 07/19/212112: CARDIAC CONSULT ASSESSMENT/PLAN ASSESSMENT/PLAN Patient seen and examined. Agree with EXTRACTOR OPERATOR HELPER's assessment and plan. CP with atypical features. TX ruled out Recent MPI did not show any significant ischemia Continue current management for Covid Thank you for your consultation MITUL BRAY APRN Jul 19, 2021 12:08 RUBIO SIMMONS MD Jul 19, 2021 21:13
[2021-07-19] MEDS: IV NORMAL SALINE 1000ML BAG 1,000 ML IV SCH ×2 (13:20)
[2021-07-19 15:00] VITALS: BP 152/67
--- NOTE | 2021-07-19 15:02 | HP ---
DATE OF SERVICE: 07/19/2021 ADMIT DATE: 07/19/2021 CHIEF COMPLAINT AND HISTORY OF PRESENT ILLNESS: This 80-year-old female well known to me, presented to the Emergency Room with substernal chest pain starting about an hour prior to arrival. She described as pressure-like, nonradiating with mild dyspnea and dizziness with it. The pain resolved spontaneously right before arrival. Started shortly after she had laid down after eating a cheeseburger. She does report some malaise, fatigue, subjective chills, mild dry cough. She was found to be COVID positive in the Emergency Room, but admitted to rule out cardiac etiology of her pain. PAST MEDICAL HISTORY AND PAST SURGICAL HISTORY: Remarkable for prior history of breast cancer of the prior right mastectomy. She has a history of hypertension. She has had a prior cholecystectomy and tonsillectomy. MEDICATIONS: Listed on the computer have been addressed. ALLERGIES: SHE IS ALLERGIC TO SULFA, ATROPINE, CODEINE AND DIPHENOXYLATE. SOCIAL HISTORY: She is a lifetime nonsmoker, nondrinker. Exercises regularly. Single. FAMILY HISTORY: Noncontributory. REVIEW OF SYSTEMS: As mentioned above. PHYSICAL EXAMINATION: GENERAL: She is a well-developed, well-nourished white female, appears nontoxic. She claims to feel fine at time of my examination. VITAL SIGNS: Stable. She is afebrile. HEAD, EYES, EARS, NOSE AND THROAT: Unremarkable. NECK: Supple, without adenopathy or thyromegaly. CHEST: Clear to auscultation and percussion. HEART: Regular rate and rhythm without S3, S4 or murmur. ABDOMEN: Soft, nontender, without hepatosplenomegaly or masses. EXTREMITIES: Without cyanosis, clubbing, edema. NEUROLOGIC: She is intact. LABORATORY DATA: EKG showed no acute changes. CBC essentially unremarkable. Troponin x 2 was negative. Cardiology evaluation was as such that they felt she was safe for discharge from a cardiac standpoint. D-dimer was negative and again COVID was positive. IMPRESSION: 1. Chest pain, likely noncardiac as evidenced by workup today, but suggestive of the same on admission. 2. COVID-19 infection without significant warning signs at this point in time. PLAN: Await Cardiology opinion with discharge and outpatient followup if negative. [facility] – [place] DR: SHOLA/mayr TID: [id number]
--- NOTE | 2021-07-19 15:18 | DS ---
DATE OF DISCHARGE: 07/19/2021 PRIMARY DIAGNOSIS: Noncardiac chest pain. ADDITIONAL DIAGNOSES: 1. COVID-19 infection. 2. Hypertension. CHIEF COMPLAINT AND HISTORY OF PRESENT ILLNESS: This 80-year-old female admitted through the Emergency Room on the 4th with chest pain suggestive of cardiac etiology. She did test positive for COVID-19 virus. SUMMARY OF STAY: Cardiac workup was negative including EKG, serial enzymes. Cardiology evaluation to get their blessing for discharge. She really was mostly asymptomatic from the COVID-19, although she did run a temperature up to 100.3 prior to discharge and did have some subtle bibasilar infiltrates on chest x-ray, but good O2 sats throughout the stay. She was pushing for discharge and this was accomplished with instructions to call if there was any worsening in her respiratory symptoms. DISPOSITION: The patient is discharged to home. DIET: Regular diet. ACTIVITY: As tolerated, office in 2 weeks. DISCHARGE MEDICATIONS: Listed on the med rec been addressed. OVI DR: Derek TID: [id number]
[2021-07-19 19:33] VITALS: BP 157/74
== END 2021-07-19 21:30 | disposition home or self-care (01) | DRG 391 ==
LOC: ER 22:02 → 6 SOUTH 22:33 → OBSVTOIN 07-19 13:04
PROVIDERS: ADMIT Family Medicine; ATTEND Family Medicine
DX: K21.9 Gastro-esophageal reflux disease without esophagitis (principal); U07.1 COVID-19; I10 Essential (primary) hypertension; Z85.3 Personal history of malignant neoplasm of breast; Z90.11 Acquired absence of right breast and nipple; Z88.2 Allergy status to sulfonamides; Z88.8 Allergy status to other drugs, medicaments and biological substances; Z90.49 Acquired absence of other specified parts of digestive tract; Z28.3 Underimmunization status
CPT/HCPCS: 36415; 71045; 80053; 80061; 83690; 83735; 83880; 84484; 85007; 85025; 85379; 87426; 93005; G0378; G0379; J7030; 99285-25